=== PATIENT | male | born 1990 | race Caucasian/White ===

== ENCOUNTER 2017-02-12 18:42 | Emergency (ER) | payer OTHER ==
[~2017-02-12] VITALS: Ht 175.3 cm; Wt 76.1 kg
[2017-02-12 18:43] VITALS: BP 121/76
[2017-02-12] MEDS ORDERED: MECLIZINE CHEWABLE 25 MG TAB PO ONE (19:00)
[2017-02-12] MEDS ORDERED: ONDANSETRON ODT 4 MG PO ONE (19:00)
[2017-02-12] MEDS ORDERED: ONDANSETRON ODT 4 MG ONE (19:15)
[2017-02-12] MEDS ORDERED: MECLIZINE CHEWABLE 25 MG TAB ONE (19:15)
== END 2017-02-12 19:36 | disposition home or self-care (01) ==
LOC: ED 19:28
DX: H83.09 Labyrinthitis, unspecified ear (principal); R42 Dizziness and giddiness
CPT/HCPCS: 99283; Q0162

== ENCOUNTER 2017-02-16 22:57 | Emergency (ER) | payer BC, OTHER ==
[~2017-02-16] VITALS: Ht 175.3 cm; Wt 71.4 kg
[2017-02-16 22:59] VITALS: BP 113/67
== END 2017-02-16 23:41 | disposition home or self-care (01) ==
LOC: ED 23:35
DX: J01.00 Acute maxillary sinusitis, unspecified (principal); H92.01 Otalgia, right ear; G89.29 Other chronic pain; Z87.891 Personal history of nicotine dependence
CPT/HCPCS: 99281

== ENCOUNTER 2017-02-18 23:44 | Emergency (ER) | payer SELFPAY ==
[~2017-02-18] VITALS: Ht 175.3 cm; Wt 71.4 kg
[2017-02-19 03:06] VITALS: BP 109/72
== END 2017-02-19 03:09 | disposition home or self-care (01) ==
LOC: ED 23:59
DX: J01.00 Acute maxillary sinusitis, unspecified (principal)
CPT/HCPCS: 70450; 93005

== ENCOUNTER 2017-03-08 22:25 | Emergency (ER) | payer SELFPAY ==
[~2017-03-08] VITALS: Ht 175.3 cm; Wt 70.3 kg
[2017-03-08 22:26] VITALS: BP 125/82
== END 2017-03-08 23:53 | disposition home or self-care (01) ==
LOC: ED 22:49
DX: H72.91 Unspecified perforation of tympanic membrane, right ear (principal); E87.8 Other disorders of electrolyte and fluid balance, not elsewhere classified; R42 Dizziness and giddiness
CPT/HCPCS: 99283

== ENCOUNTER 2018-04-21 02:45 | Emergency (ER) | payer BC ==
[~2018-04-21] VITALS: Ht 175.3 cm; Wt 76.9 kg
[2018-04-21] MEDS ORDERED: SIMETHICONE 125 MG CHEW TAB PO SCH (03:00)
[2018-04-21 04:49] VITALS: BP 107/62
== END 2018-04-21 04:51 | disposition home or self-care (01) ==
LOC: ED 04:10
DX: K59.00 Constipation, unspecified (principal); F41.1 Generalized anxiety disorder
CPT/HCPCS: 74021; 99284

== ENCOUNTER 2018-05-18 01:15 | Emergency (ER) | payer BC ==
[2018-05-18 01:29] VITALS: BP 120/80
[2018-05-18] MEDS ORDERED: ONDANSETRON ODT 4 MG PO ONE (02:00)
[2018-05-18] MEDS ORDERED: ONDANSETRON ODT 4 MG ONE (02:10)
[2018-05-18 02:33] LABS: MICROSCOPIC NOT IND
[2018-05-18 02:36] LABS: BASOPHILS # (AUTO) 0.04 x10^3/uL (0-0.1); BASOPHILS % (AUTO) 1 % (0-1); EOSINOPHILS # (AUTO) 0.24 x10^3/uL (0-0.4); EOSINOPHILS % (AUTO) 3 % (1-7); LYMPHOCYTES # (AUTO) 2.57 x10^3/uL (1-3.4); LYMPHOCYTES % (AUTO) 29 % (22-44); MD NO; MEAN CORPUSCULAR HEMOGLOBIN 29.9 pg (27.5-34.5); MEAN CORPUSCULAR HGB CONC 33.3 g/dL (33.2-36.2); MEAN CORPUSCULAR VOLUME 89.7 fL (81-97); MEAN PLATELET VOLUME 9.8 fL (7.4-10.4); MONOCYTES # (AUTO) 0.63 x10^3/uL (0.2-0.8); MONOCYTES % (AUTO) 7 % (2-9); NEUTROPHILS # (AUTO) 5.52 x10^3/uL (1.8-6.8); NEUTROPHILS % (AUTO) 61 % (42-75); PLATELET COUNT 202 x10^3/uL (130-400); RED BLOOD COUNT 5.49 x10^6/uL (4.38-5.82); RED CELL DISTRIBUTION WIDTH 12.7 % (9.4-14.8)
[2018-05-18 02:44] LABS: CULTURE INDICATED? NO
[2018-05-18 02:48] LABS: ALBUMIN 3.8 g/dL (3.4-5.0); ANION GAP 9 mmol/L (5-15); CALCIUM 8.8 mg/dL (8.5-10.1); CHLORIDE 107 mmol/L (98-107)
[2018-05-18 02:51] LABS: ALANINE AMINOTRANSFERASE 31 U/L (12-78); ALKALINE PHOSPHATASE 69 U/L (45-117); BILIRUBIN,TOTAL 0.3 mg/dL (0.2-1.0); CREATININE 1.17 mg/dL (0.7-1.3)
== END 2018-05-18 03:40 | disposition home or self-care (01) ==
LOC: ED 02:01
DX: K29.00 Acute gastritis without bleeding (principal)
CPT/HCPCS: 36415; 80053; 81003; 83690; 85025; 86677; 99284; Q0162